=== PATIENT | female | born 1990 | race Hispanic/Latino ===

== ENCOUNTER → 2017-04-28 | Outpatient (CLI) | payer OTHER ==
--- NOTE | 2017-04-28 18:11 | Diagnostic Imaging Report ---
#[id number] - USBRECOMLT ULTRASOUND OF THE LEFT BREAST : 04/28/2017 Comparison is made to exam dated: 04/29/2011 ultrasound - [facility]. Color flow and real-time ultrasound were performed on the entire left breast with scanning in all four quadrants, retroareolar region and the left axilla. 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 -At the 6 o'clock position 2 cm from the nipple is a septated cyst measuring 0.4 x 0.2 x 0.3 cm. -At the 10 o'clock position 2 cm from the nipple is a simple cyst measuring 0.4 x 0.3 x 0.4 cm. IMPRESSION: BENIGN There is no sonographic evidence of malignancy. Follow-up with ACR/ACS guidelines. Yearly ultrasound followup would be of benefit to ascertain stability. Reggie Gardner Jr., D.O. cw/:04/28/2017 15:35:32 Service Promoter Salesperson: DALE KOVACS, [facility] letter sent: Normal Exam Ultrasound BI-RADS: 2 Benign
--- NOTE | 2017-04-28 18:11 | Diagnostic Imaging Report ---
#[id number] - USBRECOMRT ULTRASOUND OF THE RIGHT BREAST : 04/28/2017 Comparison is made to exam dated: 04/29/2011 ultrasound - [facility]. Color flow and real-time ultrasound were performed on the entire right breast, retroareolar region and right axilla with specific emphasis at the area of the palpable abnormality. There is a well circumscribed hypoechoic mass at the 11 o'clock position measuring 1.6 x 1.1 x 1.6 cm. This appears similar to the prior study. No suspicious characteristics are identified. IMPRESSION: BENIGN There is no sonographic evidence of malignancy. Follow-up with ACR/ACS guidelines. Consider yearly followup ultrasound. Reggie Gardner Jr., D.O. cw/:04/28/2017 15:29:38 Hole Filler: DALE KOVACS, [facility] letter sent: Compared to Prior B9 Ultrasound BI-RADS: 2 Benign
== END ==
LOC: US 14:19
PROVIDERS: ATTEND Specialist
DX: N60.12 Diffuse cystic mastopathy of left breast (principal); N60.11 Diffuse cystic mastopathy of right breast